=== PATIENT | male | born 1970 | race Two or more races ===

== ENCOUNTER 2016-11-29 09:49 | Emergency (ER) | payer OTHER ==
[2016-11-29 09:58] VITALS: TEMP 97.3
[2016-11-29 10:38] LABS: COLOR YELLOW; LEUKOCYTE ESTERASE,URINE NEGATIVE (NEGATIVE); NITRITE,URINE NEGATIVE (NEGATIVE)
--- NOTE | 2016-11-29 10:50 | EDPHY ---
HPI/HX/ROS/PE/MDM Narrative: CHIEF COMPLAINT: Flank pain. HPI: The patient is a 46-year-old male who complains of right flank pain that started 1 week ago and returned yesterday. When he first had the pain he drank a lot of water and the pain improved. Yesterday the patient's pain returned. It has progressively worsened over the past 24 hours. His pain radiates to his back and into his penis. He denies fever, nausea, vomiting, or diarrhea. The patient is [place] speaking, an per diem interpreter was present for the examination. REVIEW OF SYSTEMS: Aside from elements discussed in the HPI, a comprehensive 10-point review of systems was reviewed and is negative. PMH: Gout. Ulcer. Appendectomy. SOCIAL HISTORY: Single. Lives in [place]. PHYSICAL EXAM: General: Patient is alert, in no acute distress. ENT: Eyes are normal to inspection. ENT inspection normal. Neck: Normal inspection. Full range of motion. Respiratory: No respiratory distress. Breath sounds normal bilaterally. Cardiovascular: Regular rate and rhythm. Strong peripheral pulses. Abdomen: The abdomen is nontender to palpation. There are no peritoneal signs. There are normal bowel sounds. Back: Normal to inspection. No tenderness to palpation. Skin: Normal color. No rash. Warm and dry. Extremities: Normal appearance. Full range of motion. Neuro: Oriented x3. Normal motor function. Normal sensory function. ED Course: The patient presents with acute right flank pain. His pain radiates to the right back and penis. I suspect kidney stone. Plan for CT abdomen/pelvis to look for stone. Patient received IV Toradol and Dilaudid for pain. 11:35 a.m.: The patient is feeling better after medication. CT is pending. CT shows [id number] stone in right distal ureter. MDM: This patient presents with signs and symptoms of renal colic, confirmed by CT. There is no evidence of acute abdomen, appendicitis, bowel obstruction, bowel perforation, or sepsis. The patient will be treated with Toradol and percocet and referral to urology. - Data Points Imaging Results: Imaging Impressions Abdomen/Pelvis CT 11/29/16 10:54 Impression: 1. 5 mm distal right ureteral calculus resulting in mild to moderate hydronephrosis. 2. Bilateral nephrolithiasis. 3. Hepatic steatosis. Findings discussed with Emergency Department physician, Alejandro Ford MD, on 11/29/2016 at 11:40 a.m. Attention: This CT examination is specifically designed to evaluate patients who are clinically suspected of having acute obstructive uropathy. This examination does not use radiographic contrast, and as such, provides only a limited evaluation of the abdomen, pelvis and retroperitoneum. If there is further clinical suspicion for pathological conditions other than obstructive uropathy, a complete CT evaluation of the abdomen and pelvis utilizing intravenous, oral, and rectal contrast should be considered. Laboratory Results: Laboratory Results 11/29/16 10:50 11/29/16 10:50 11/29/16 11/29/16 11/29/16 10:50 10:50 10:20 WBC 7.26 10^3/uL 10^3/uL (3.80-9.50) RBC 5.69 10^6/uL 10^6/uL (4.40-6.38) Hgb 16.6 g/dL g/dL (13.7-17.5) Hct 46.2 % % (40.0-51.0) MCV 81.2 fL L fL (81.5-99.8) MCH 29.2 pg pg (27.9-34.1) MCHC 35.9 g/dL g/dL (32.4-36.7) RDW 12.3 % % (11.5-15.2) Plt Count 182 10^3/uL 10^3/uL (150-400) MPV 10.3 fL fL (8.7-11.7) Neut % (Auto) 73.1 % % (39.3-74.2) Lymph % (Auto) 16.8 % % (15.0-45.0) [place] % (Auto) 8.8 % % (4.5-13.0) Eos % (Auto) 0.6 % % (0.6-7.6) Baso % (Auto) 0.4 % % (0.3-1.7) Nucleat RBC Rel Count 0.0 % % (0.0-0.2) Absolute Neuts (auto) 5.31 10^3/uL 10^3/uL (1.70-6.50) Absolute Lymphs (auto) 1.22 10^3/uL 10^3/uL (1.00-3.00) Absolute Monos (auto) 0.64 10^3/uL 10^3/uL (0.30-0.80) Absolute Eos (auto) 0.04 10^3/uL 10^3/uL (0.03-0.40) Absolute Basos (auto) 0.03 10^3/uL 10^3/uL (0.02-0.10) Absolute Nucleated RBC 0.00 10^3/uL 10^3/uL (0-0.01) Immature Gran % 0.3 % % (0.0-1.1) Immature Gran # 0.02 10^3/uL 10^3/uL (0.00-0.10) Sodium 140 mEq/L mEq/L (134-144) Potassium 4.4 mEq/L mEq/L (3.5-5.2) Chloride 103 mEq/L mEq/L (97-110) Carbon Dioxide 26 mEq/l mEq/l (22-31) Anion Gap 11 mEq/L mEq/L (8-16) BUN 13 mg/dL mg/dL (7-23) Creatinine 0.9 mg/dL mg/dL (0.7-1.3) Estimated GFR > 60 Glucose 100 mg/dL mg/dL (70-100) Calcium 9.5 mg/dL mg/dL (8.5-10.4) Urine Color YELLOW Urine Appearance HAZY Urine pH 6.0 (5.0-7.5) Ur Specific [place] 1.017 (1.002-1.030) Urine Protein NEGATIVE (NEGATIVE) Urine Ketones NEGATIVE (NEGATIVE) Urine Blood 2+ H (NEGATIVE) Urine Nitrate NEGATIVE (NEGATIVE) Urine Bilirubin NEGATIVE (NEGATIVE) Urine Urobilinogen NEGATIVE EU EU (0.2-1.0) Ur Leukocyte Esterase NEGATIVE (NEGATIVE) Urine RBC 50-182 /hpf H /hpf (0-3) Urine WBC 3-5 /hpf H /hpf (0-3) Ur Epithelial Cells NONE SEEN /lpf /lpf (NONE-1+) Urine Mucus 2+ /lpf H /lpf (NONE-1+) Ur Culture Indicated? NOT INDICATED (NI) Urine Glucose NEGATIVE (NEGATIVE) Medications Given: Discontinued Medications Hydromorphone HCl (Dilaudid) 1 mg IVP EDNOW ONE Stop: 11/29/16 11:04 Last Admin: 11/29/16 11:06 Dose: 1 mg Sodium Chloride (Ns) 1,000 mls @ 0 mls/hr IV ONCE ONE PRN Reason: Wide Open Stop: 11/29/16 11:04 Last Admin: 11/29/16 11:06 Dose: 1,000 mls Ketorolac Tromethamine (Toradol) 30 mg IM EDNOW ONE Stop: 11/29/16 11:04 Last Admin: 11/29/16 11:06 Dose: 30 mg Ondansetron HCl (Zofran) 4 mg IVP EDNOW ONE Stop: 11/29/16 11:04 Last Admin: 11/29/16 11:06 Dose: 4 mg General Time Seen by Provider: 11/29/16 10:39 Initial Vital Signs: Initial Vital Signs Temperature (C) 36.3 C 11/29/16 09:55 Heart Rate 76 11/29/16 09:55 Respiratory Rate 18 11/29/16 09:55 Blood Pressure 141/105 H 11/29/16 09:55 O2 Sat (%) 97 11/29/16 09:55 O2 Delivery Mode Nasal Cannula O2 (L/minute) 2 Allergies/Adverse Reactions: No Known Allergies Allergy (Verified 11/29/16 09:53) Home Medications: Medication Instructions Recorded Ketorolac Tromethamine [Toradol] 10 mg PO Q6H #16 tab 11/29/16 oxyCODONE/APAP 5/325 [Percocet 1 - 2 tab PO Q4H PRN #10 tab 11/29/16 5/325] Departure - Departure Disposition: Home, Routine, Self-Care Clinical Impression: Kidney stone on right side Condition: Good Instructions: Kidney Stones (ED), How to Strain Your Urine (ED) Additional Instructions: You have been referred to a urologist below, followup with the urologist within one week for reevaluation. Return to the emergency apartment for fever, severe pain, inability to urinate or other concerns. Strain urine to try and catch the kidney stone and bring this to the urology appointment. Te hemos referido a un urologo abajo, hacer vy con el urologo dentro de kirk semana para reevaluacion. Regresar a la [facility] para fiebre, dolor jimmie, la incapacidad de orinar u otras preocupaciones. Colar bernal orina y tratar de agarrar la siva y llevarla a bernal vy de urologia. Ketorolac Tromethamine (Toradol) 10 mg tableta, alondra 10 mg por la boca cada 6 horas. Oxycodone/APAP/5/325 1 tableta, alondra 1-2 tabletas por la boca cada 4 horas slava sea necesario para dolor jimmie. Referrals: Winsome Landrum [Primary Care Provider] - As per Instructions Erik Grajeda MD [Medical Doctor] - As per Instructions (Urology) Prescriptions: Ketorolac Tromethamine [Toradol] 10 mg PO Q6H #16 tab oxyCODONE/APAP 5/325 [Percocet 5/325] 1 - 2 tab PO Q4H PRN #10 tab PRN Reason: Pain, Severe Report Scribed for: Alejandro Ford Report Scribed by: Earline Gilbert Date of Report: 11/29/16 Time of Report: 10:55 Physician Review and Approval Statement: Portions of this note were transcribed by a medical reimbursement manager. I personally performed the history, physical exam, and medical decision-making; and confirmed the accuracy of the information in the transcribed note.
[2016-11-29] MEDS ORDERED: ONDANSETRON 4 MG/2 ML VIAL ONE (10:51)
[2016-11-29] MEDS ORDERED: HYDROmorphONE/DILAUDID 1 MG/ML SYR ONE (10:52)
[2016-11-29] MEDS ORDERED: KETOROLAC 30 MG/1 ML SDV ONE (10:54)
[2016-11-29 10:57] LABS: % IMMATURE GRANULYOCYTES 0.3 % (0.0-1.1); ABSOLUTE IMMATURE GRANULOCYTES 0.02 10^3/uL (0.00-0.10); ADD DIFF? NO; ADD MORPH? NO; ADD SCAN? NO; ATYPICAL LYMPHOCYTE FLAG 10 (0-99); FRAGMENT RBC FLAG 0 (0-99); HEMATOCRIT 46.2 % (40.0-51.0); HEMOGLOBIN 16.6 g/dL (13.7-17.5); LEFT SHIFT FLG 0 (0-99); LIPEMIA HEMOLYSIS FLAG 90 (0-99); MEAN CELL HEMOGLOBIN 29.2 pg (27.9-34.1); MEAN CELL HEMOGLOBIN CONCENTR. 35.9 g/dL (32.4-36.7); MEAN CELL VOLUME 81.2 fL (81.5-99.8); MEAN PLATELET VOLUME 10.3 fL (8.7-11.7); PLATELET CLUMPS FLAG 0 (0-99); PLATELET COUNT 182 10^3/uL (150-400); RED BLOOD CELL COUNT 5.69 10^6/uL (4.40-6.38); RED CELL DISTRIBUTION WIDTH 12.3 % (11.5-15.2)
[2016-11-29] MEDS ORDERED: HYDROmorphONE/DILAUDID 1 MG/ML SYR IVP ONE (11:03)
[2016-11-29] MEDS ORDERED: ONDANSETRON 4 MG/2 ML VIAL IVP ONE (11:03)
[2016-11-29] MEDS ORDERED: KETOROLAC 30 MG/1 ML SDV IM ONE (11:03)
[2016-11-29] MEDS ORDERED: NS 1,000 ML IV ONE (11:03)
[2016-11-29 11:04] LABS: MUCUS 2+ /lpf (NONE-1+); RBC,URINE 50-182 /hpf (0-3)
[2016-11-29 11:10] VITALS: O2SAT 96
[2016-11-29 11:10] LABS: ANION GAP 11 mEq/L (8-16); CALCIUM 9.5 mg/dL (8.5-10.4); CARBON DIOXIDE 26 mEq/l (22-31); CHLORIDE 103 mEq/L (97-110); CREATININE 0.9 mg/dL (0.7-1.3); GLOMERULAR FILTRATION RATE > 60; GLUCOSE 100 mg/dL (70-100); POTASSIUM 4.4 mEq/L (3.5-5.2); SODIUM 140 mEq/L (134-144)
[2016-11-29 11:11] VITALS: RESP 14
[2016-11-29 11:49] VITALS: BP 117/79; PULSE 67
== END 2016-11-29 12:24 | disposition home or self-care (01) ==
DX: N20.0 Calculus of kidney (principal); Z90.49 Acquired absence of other specified parts of digestive tract
CPT/HCPCS: 96374; J1170; J1885; J2405